=== PATIENT | male | born 1950 | race Caucasian/White ===

== ENCOUNTER → 2018-03-22 12:05 | Outpatient (CLI) | payer OTHER, SELFPAY ==
[2018-03-22 12:43] LABS: Add Manual Diff / Slide Review NO; Basophils Percent Auto 0.7 % (0-2); Eosinophils Percent Auto 1.6 % (2-4); Hematocrit 48.3 % (41-53); Hemoglobin 16.7 g/dL (13.5-17.5); Mean Corpuscular HGB Conc 34.6 % (30-36); Mean Corpuscular Hemoglobin 33.6 PG (26-34); Monocytes Percent Auto 10.3 % (3-14); Neutrophils Absolute Auto 3100 /uL (3000-5900); Neutrophils Percent Auto 59.4 % (50-75); Platelet Count 182 X10^3/uL (150-400); Red Blood Cell Count 4.98 X10^6/uL (4.5-5.9); Red Cell Distribution Width 13.7 % (11.6-14.8); White Blood Cell Count 5.2 X10^3/uL (4.5-11.0)
[2018-03-22 13:03] LABS: Alanine Aminotransferase 34 IU/L (21-72); Albumin 4.5 g/dL (3.5-5.0); Albumin Globulin Ratio 1.3 (1.0-2.8); Alkaline Phosphatase 65 U/L (38-126); Aspartate Aminotransferase 31 IU/L (17-59); Bilirubin Total 0.8 mg/dL (0.2-1.3); Blood Urea Nitrogen 14 mg/dL (9-20); Calcium 9.5 mg/dL (8.4-10.2); Carbon Dioxide 33 mmol/L (22-32); Chloride 99 mmol/L (98-107); Cholesterol 144 mg/dL (140-199); Estimated Glomerular Filt Rate 50.5 mL/min (>60); Globulin 3.5 g/dL (1.7-4.1); Glucose 88 mg/dL (80-110); HDL Cholesterol 59 mg/dL (40-60); HEMOLYSIS < 15 (0-50); LDL Cholesterol Calculated 69 mg/dL (<100); Potassium 5.4 mmol/L (3.4-5.1); Sodium 139 mmol/L (137-145); Triglycerides 78 mg/dL (35-150)
[2018-03-22 13:33] LABS: Thyroid Stimulating Hormone 1.26 uIU/mL (0.47-4.68)
== END ==
PROVIDERS: PCP Family Medicine; Visit Provider Family Medicine
DX: I10 Essential (primary) hypertension (principal)
CPT/HCPCS: 36415; 80053; 80061; 84153; 84443; 85025

== ENCOUNTER 2018-04-30 12:01 | Emergency (ER) | payer OTHER, SELFPAY ==
[2018-04-30 12:18] VITALS: BP 192/95; PULSE 63; RESP 18; TEMP 37; O2SAT 100; BMI 28.5
--- NOTE | 2018-04-30 12:18 | DI.RAD.S_ITS ---
PROCEDURE: XR RIBS RT MIN 3V W CXR 1V INDICATIONS: injury and pain. TECHNIQUE: 2 views of the right ribs were acquired, along with a single view chest. COMPARISON: None. FINDINGS: Surgical changes and devices: None. Bones and chest wall: No fractures or dislocations. No suspicious bony lesions. Overlying soft tissues appear unremarkable. Lungs and pleura: No pleural effusions or pneumothorax. Lungs appear clear. Mediastinum: Mediastinal contours appear normal. Heart size is normal. IMPRESSION: Normal for age, source of current symptoms is not seen. Dictated by: Anil Alvarado M.D. on 04/30/2018 at 13:36 Approved by: Anil Alvarado M.D. on 04/30/2018 at 13:36
--- NOTE | 2018-04-30 12:39 | ED.UPPEXIN ---
HPI - Extremity Injury (Upper) <Bee Murrell PA-C - Last Filed: 04/30/18 18:45> General Chief Complaint: Extremity Injury, Upper Stated Complaint: fell,hurt rt side Time Seen by Provider: 04/30/18 12:26 Source: patient Mode of arrival: ambulatory Limitations: no limitations History of Present Illness HPI narrative: This 68-year-old male slipped and fell on the edge of his bed foot board on Monday night, hitting the right side of his ribs. Since then, he has had pain, especially with sneezing or coughing. He has not been taking any pain medication. States that he thought this would improve on its own, but still just as painful so came in due to concern for rib fracture. He denies any wheeze or dyspnea. He denies any head contusion, LOC, or any other injury. Related Data Home Medications Medication Instructions Recorded Confirmed atorvastatin [Lipitor] 20 mg PO BEDTIME #0 10/24/16 04/30/18 aspirin 325 mg PO QDAY #0 12/13/16 sertraline 50 mg PO DAILY 04/30/18 04/30/18 Previous Rx's Medication Instructions Recorded lisinopril 20 mg PO BID #180 tab 09/19/17 metoprolol succinate ER 50 mg 50 mg PO BID #180 each 03/28/18 capsule sprinkle, ext. release 24 hr diltiazem ER 180 mg capsule,24 180 mg PO QDAY #90 cap 04/23/18 hr,extended release oxycodone-acetaminophen [Percocet] 1 tab PO Q4-6H PRN #12 tab 04/30/18 Allergies Allergy/AdvReac Type Severity Reaction Status Date / Time No Known Drug Allergies Allergy Unknown Verified 04/30/18 12:18 Review of Systems <Bee Murrell PA-C - Last Filed: 04/30/18 18:45> Review of Systems All systems reviewed & are unremarkable except as noted in HPI and below Exam <Bee Murrell PA-C - Last Filed: 04/30/18 18:45> Narrative Exam Narrative: GENERAL APPEARANCE: Patient sitting comfortably, in no distress. NECK/THYROID: Neck supple LUNGS: Clear to auscultation bilaterally. CHEST: TTP over the R. mid to inferior ribs between the mid and lateral scapular line the where there are ecchymoses HEART: Regular rate and rhythm without murmur, normal S1, S2, no S3 or S4. ABDOMEN: Soft, NT, ND, + BS x 4 quadrants NEUROLOGIC: Alert and oriented, normal speech, gait and coordination. Initial Vital Signs Initial Vital Signs: Vital Signs Temperature 98.6 F 04/30/18 12:18 Pulse Rate 63 04/30/18 12:18 Respiratory Rate 18 04/30/18 12:18 Blood Pressure 192/95 H 04/30/18 12:18 Pulse Oximetry 100 04/30/18 12:18 <DO Juan Pablo Domínguez Last Filed: 04/30/18 20:28> Initial Vital Signs Initial Vital Signs: Vital Signs Temperature 98.6 F 04/30/18 12:18 Pulse Rate 63 04/30/18 12:18 Respiratory Rate 18 04/30/18 12:18 Blood Pressure 192/95 H 04/30/18 12:18 Pulse Oximetry 100 04/30/18 12:18 Course <Bee Murrell PA-C - Last Filed: 04/30/18 18:45> Orders Ordered: ED Orders 04/30/18 12:18 XR ribs RT min 3V w CXR1V Stat Discontinued Medications Ibuprofen (Advil) 800 mg PO NOW ONE Stop: 04/30/18 13:02 Last Admin: 04/30/18 13:16 Dose: 800 mg Vital Signs - 8 hr 04/30/18 14:20 Pulse Rate 61 Respiratory Rate 18 Blood Pressure [Right Arm] 181/94 H Pulse Oximetry 97 <DO Juan Pablo Domínguez Last Filed: 04/30/18 20:28> Orders Ordered: ED Orders 04/30/18 12:18 XR ribs RT min 3V w CXR1V Stat Discontinued Medications Ibuprofen (Advil) 800 mg PO NOW ONE Stop: 04/30/18 13:02 Last Admin: 04/30/18 13:16 Dose: 800 mg Vital Signs - 8 hr 04/30/18 14:20 Pulse Rate 61 Respiratory Rate 18 Blood Pressure [Right Arm] 181/94 H Pulse Oximetry 97 MDM - Extremity Injury (Upper) <ANNA Hanna Last Filed: 04/30/18 18:45> Imaging Data Chest x-ray: Radiologist's impression: [address] [address] XRay Report Addendum Patient: Landry Sweet MMR#: [id number] : [id number]:[id number] Age/Sex: 68 / MDate of Service: 04/30/18 Loc: ED Accession Number: [id number] Procedure: XR ribs RT min 3V w CXR1V Ordering Provider: Shaan Jalloh D.O. ADDENDUM This report includes an Addendum and supersedes previous reports for this exam. PROCEDURE: XR RIBS RT MIN 3V W CXR 1V INDICATIONS: injury and pain. TECHNIQUE: 2 views of the right ribs were acquired, along with a single view chest. COMPARISON: None. FINDINGS: Surgical changes and devices: None. Bones and chest wall: No dislocations. No suspicious bony lesions. Overlying soft tissues appear unremarkable. Lungs and pleura: No pleural effusions or pneumothorax. Lungs appear clear. Mediastinum: Mediastinal contours appear normal. Heart size is normal. IMPRESSION: Normal for age, source of current symptoms is not seen. Dictated by: Anil Alvarado M.D. on 04/30/2018 at 13:36 Approved by: Anil Alvarado M.D. on 04/30/2018 at 13:36 ADDENDUM: On further review there appears to be minimally displaced lower lateral right rib fracture or 2 adjacent fractures, superimposed upon the lateral border of the chest, at the point where the ninth and 10th ribs overlap. No underlying pneumothorax. No gas in the soft tissues found. Dictated by: Anil Alvarado M.D. on 04/30/2018 at 14:02 Approved by: Anil Alvarado M.D. on 04/30/2018 at 14:04 Discharge Plan Departure Patient Disposition: Home Clinical Impression: Right rib fracture Discharge Date/Time: 04/30/18 14:28 Interventions: ED Discharge Assessment Last Done: 04/30/18 14:27 Instructions: DI for Rib Fracture Activity Restrictions/Additional Instructions: Please take your ibuprofen that you have at home, 6-800 mg (3-4 tablets) every 8 hr to help with pain and inflammation. You can take the Percocet that you have used in the past as needed, but remember not to drive as it can make you sleepy. Please call your PCP today and set up a follow-up in the next few days for recheck and refill your pain medicine if needed. Return here right away as we talked about if you have any acutely worsening symptoms such as more pain or trouble breathing. Use the spirometer as the respiratory therapist showed you to help keep your lungs expanded. Prescriptions: New oxycodone-acetaminophen [Percocet] 5-325 mg tablet 1 tab PO Q4-6H PRN (Reason: acute rib fx pain) Qty: 12 RF: 0 No Action atorvastatin [Lipitor] 20 MG tablet 20 mg PO BEDTIME Qty: 0 RF: 0 aspirin 325 MG tablet 325 mg PO QDAY Qty: 0 RF: 0 lisinopril 20 MG tablet 20 mg PO BID Qty: 180 RF: 3 diltiazem HCl [Taztia XT] 180 mg capsule,extended release 24 hr 180 mg PO QDAY Qty: 90 RF: 1 metoprolol succinate 50 mg cap,sprinkle,ER 24hr dose pack 50 mg PO BID Qty: 180 RF: 3 sertraline 50 mg tablet 50 mg PO DAILY RF: 0 Referrals: Alejandro Jesus MD [Primary Care Provider] - <Shaan Jalloh DO - Last Filed: 04/30/18 20:28> Cosign ED Attending Cossergeiature Attestation: I was immediately available in the department for consultation. Documentation has been reviewed. I agree with assessment and plan.
[2018-04-30] MEDS: IBUPROFEN 400 MG TABLET 800 MG PO (13:16)
[2018-04-30 14:20] VITALS: BP 181/94; PULSE 61; RESP 18; O2SAT 97
== END 2018-04-30 14:28 | disposition home or self-care (01) ==
PROVIDERS: Emergency Provider Internal Medicine; PCP Family Medicine
DX: S22.31XA Fracture of one rib, right side, initial encounter for closed fracture (principal); W01.0XXA Fall on same level from slipping, tripping and stumbling without subsequent striking against object, initial encounter
CPT/HCPCS: 71101; 99282; 99283

== ENCOUNTER → 2019-03-26 10:36 | Outpatient (CLI) | payer OTHER, SELFPAY ==
[2019-03-26 11:37] LABS: Add Manual Diff / Slide Review NO; Basophils Absolute Auto 0 /uL (0-100); Basophils Percent Auto 0.6 % (0-2); Eosinophils Absolute Auto 100 /uL (0-450); Hemoglobin 17.1 g/dL (13.5-17.5); Lymphocytes Absolute Auto 2000 /uL (1100-4500); Lymphocytes Percent Auto 31.9 % (25-40); Mean Corpuscular HGB Conc 34.2 % (30-36); Mean Corpuscular Hemoglobin 32.7 PG (26-34); Mean Corpuscular Volume 95.6 fL (80-100); Monocytes Absolute Auto 600 /uL (0-900); Monocytes Percent Auto 9.5 % (3-14); Neutrophils Absolute Auto 3600 /uL (1500-7000); Platelet Count 172 X10^3/uL (150-400); Red Blood Cell Count 5.23 X10^6/uL (4.5-5.9); Red Cell Distribution Width 13.4 % (11.6-14.8); White Blood Cell Count 6.3 X10^3/uL (4.5-11.0)
[2019-03-26 12:09] LABS: Alanine Aminotransferase 26 IU/L (21-72); Albumin 4.4 g/dL (3.5-5.0); Albumin Globulin Ratio 1.4 (1.0-2.8); Alkaline Phosphatase 67 U/L (38-126); Aspartate Aminotransferase 29 IU/L (17-59); BUN Creatinine Ratio 10.8 (6-22); Bilirubin Total 0.9 mg/dL (0.2-1.3); Blood Urea Nitrogen 13 mg/dL (9-20); Calcium 9.7 mg/dL (8.4-10.2); Carbon Dioxide 28 mmol/L (22-32); Chloride 97 mmol/L (98-107); Cholesterol 141 mg/dL (140-199); Estimated Glomerular Filt Rate > 60.0 mL/min (>60); Globulin 3.1 g/dL (1.7-4.1); Glucose 86 mg/dL (80-110); HDL Cholesterol 53 mg/dL (40-60); HEMOLYSIS < 15 (0-50); LDL Cholesterol Calculated 69 mg/dL (<100); Potassium 4.4 mmol/L (3.4-5.1); Sodium 136 mmol/L (137-145); Total Protein 7.5 g/dL (6.3-8.2); Triglycerides 96 mg/dL (35-150)
[2019-03-26 12:37] LABS: Prostate Specific Antigen Scrn 1.32 ng/mL (0.1-4.0)
== END ==
PROVIDERS: PCP Family Medicine; Visit Provider Family Medicine
DX: I10 Essential (primary) hypertension (principal); Z12.5 Encounter for screening for malignant neoplasm of prostate; Z13.0 Encounter for screening for diseases of the blood and blood-forming organs and certain disorders involving the immune mechanism; Z13.1 Encounter for screening for diabetes mellitus; Z13.220 Encounter for screening for lipoid disorders
CPT/HCPCS: 36415; 80053; 80061; 84443; 85025; G0103

== ENCOUNTER → 2020-02-25 11:52 | Outpatient (CLI) | payer OTHER, SELFPAY ==
[2020-02-25 13:34] LABS: Add Manual Diff / Slide Review NO; Basophils Absolute Auto 0 /uL (0-100); Basophils Percent Auto 0.7 % (0-2); Eosinophils Absolute Auto 100 /uL (0-450); Hematocrit 49.8 % (41-53); Hemoglobin 17.1 g/dL (13.5-17.5); Lymphocytes Absolute Auto 2200 /uL (1100-4500); Lymphocytes Percent Auto 33.7 % (25-40); Mean Corpuscular HGB Conc 34.3 % (30-36); Mean Corpuscular Hemoglobin 33.7 PG (26-34); Mean Corpuscular Volume 98.3 fL (80-100); Monocytes Absolute Auto 700 /uL (0-900); Monocytes Percent Auto 9.9 % (3-14); Neutrophils Absolute Auto 3600 /uL (1500-7000); Neutrophils Percent Auto 54.7 % (50-75); Platelet Count 198 X10^3/uL (150-400); Red Blood Cell Count 5.07 X10^6/uL (4.5-5.9); Red Cell Distribution Width 14.1 % (11.6-14.8); White Blood Cell Count 6.6 X10^3/uL (4.5-11.0)
[2020-02-25 13:39] LABS: Alanine Aminotransferase 43 IU/L (<50); Albumin 4.5 g/dL (3.5-5.0); Albumin Globulin Ratio 1.3 (1.0-2.8); Alkaline Phosphatase 76 U/L (38-126); Aspartate Aminotransferase 50 IU/L (17-59); BUN Creatinine Ratio 9.2 (6-22); Bilirubin Total 0.9 mg/dL (0.2-1.3); Blood Urea Nitrogen 13 mg/dL (9-20); Calcium 9.5 mg/dL (8.4-10.2); Carbon Dioxide 26 mmol/L (22-32); Chloride 100 mmol/L (98-107); Cholesterol 134 mg/dL (140-199); Estimated Glomerular Filt Rate 49.4 mL/min (>60); Globulin 3.6 g/dL (1.7-4.1); Glucose 98 mg/dL (80-110); HDL Cholesterol 52 mg/dL (40-60); HEMOLYSIS < 15 (0-50); LDL Cholesterol Calculated 60 mg/dL (<100); Potassium 4.4 mmol/L (3.4-5.1); Sodium 134 mmol/L (137-145); Total Protein 8.1 g/dL (6.3-8.2); Triglycerides 111 mg/dL (35-150)
[2020-02-25 14:07] LABS: Prostate Specific Antigen Scrn 1.42 ng/mL (0.1-4.0)
== END ==
PROVIDERS: PCP Family Medicine; Referring Provider Family Medicine; Visit Provider Family Medicine
DX: I10 Essential (primary) hypertension (principal); I48.91 Unspecified atrial fibrillation; Z12.5 Encounter for screening for malignant neoplasm of prostate; Z13.220 Encounter for screening for lipoid disorders; Z13.6 Encounter for screening for cardiovascular disorders
CPT/HCPCS: 36415; 80053; 80061; 85025; G0103

== ENCOUNTER → 2020-03-20 11:52 | Outpatient (CLI) | payer OTHER, SELFPAY ==
[2020-03-20 12:54] LABS: BUN Creatinine Ratio 10.2 (6-22); Blood Urea Nitrogen 13 mg/dL (9-20); Calcium 9.2 mg/dL (8.4-10.2); Carbon Dioxide 26 mmol/L (22-32); Chloride 101 mmol/L (98-107); Estimated Glomerular Filt Rate 55.7 mL/min (>60); Glucose 80 mg/dL (80-110); HEMOLYSIS < 15 (0-50); Potassium 4.8 mmol/L (3.4-5.1); Sodium 134 mmol/L (137-145)
== END ==
PROVIDERS: PCP Family Medicine; Referring Provider Family Medicine; Visit Provider Family Medicine
DX: I10 Essential (primary) hypertension (principal)
CPT/HCPCS: 36415; 80048

== ENCOUNTER → 2020-03-23 11:31 | Outpatient (CLI) | payer OTHER, SELFPAY ==
[2020-03-24 07:58] LABS: COVID19 Sendout Not Detected (Not Detect)
== END ==
PROVIDERS: PCP Family Medicine; Visit Provider Physician Assistant
DX: Z11.59 Encounter for screening for other viral diseases (principal)
CPT/HCPCS: 87635

== ENCOUNTER 2020-03-26 11:56 | Day surgery (SDC) | payer OTHER, SELFPAY ==
--- NOTE | 2020-03-26 | PATH_ITS ---
[facility] Accession Number: [id number] . 01 Material submitted: . sigmoid colon - SIGMOID POLYP . 02 Diagnosis: Sigmoid Colon, Polyp, Biopsy: Tubular adenoma in three of six fragments. MRV 03/30/2020 1205 Local . 02 Electronically signed: . Joycelyn Seo MD, Pathologist NPI- [id number] . 01 Gross description: . SIGMOID POLYP: Received in formalin are multiple fragment(s) of goncalves, soft tissue measuring 0.1 x 0.1 x 0.1 cm to 0.5 x 0.3 x 0.2 cm submitted entirely in 1 cassette(s) /RHETT 03/27/2020 0139 Local . 02 Pathologist provided ICD-10: D12.5 . 02 CPT . 985091 Performed at: 01 [facility] [address] [id number] MD Wilbur Hernández MD Phone: [phone] Performed at: 02 [facility] [address] [place], [place] [id number] MD Joycelyn Seo MD Phone: [phone]
[2020-03-26] MEDS: LACTATED RINGERS 1,000 ML 200 ML IV (12:08)
[2020-03-26 12:17] VITALS: BP 161/97; PULSE 54; RESP 18; TEMP 36.5; O2SAT 98; BMI 30.7
--- NOTE | 2020-03-26 12:57 | PM.HP.1 ---
History of Present Illness History of Present Illness Date Patient Seen: 03/26/20 Time Patient Seen: 12:58 Chief complaint: SDC Narrative: The patient presents for colorectal sreening. They had a previous colonoscopy 3 years ago that demonstrated multiple polyps which were No personal or family history of colon cancer. On further history denies any recent gastrointestinal symptoms. No nausea, vomiting, abdominal pain, loss of appetite, unexplained weight loss, change in bowel habits, diarrhea, constipation, melena, hematochezia, or bright red blood per rectum. Patient History Medical History Atrial fibrillation (Chronic ~2012) Chicken pox (Resolved ~1957) Hemorrhoid (Chronic ~1994) Hypertension (Chronic ~2009) Mumps (Resolved ~1956) Surgical History History of repair of ACL (Resolved ~1997) Family & Social History Social History: household members spouse Tobacco & Substance use: Smoking Status Never smoker alcohol intake current alcohol intake frequency a few times a week Substance Use Type does not use Meds Home Medications and Allergies Home Medications Medication Instructions Recorded Confirmed Type atorvastatin 20 mg tablet 20 mg PO BEDTIME #90 tab 04/09/19 03/26/20 Rx diltiazem HCl 180 mg capsule,24 180 mg PO QDAY #90 cap 04/09/19 03/26/20 Rx hr,extended release lisinopril 40 mg tablet 40 mg PO BID #180 tab 01/14/20 03/26/20 Rx metoprolol succinate 100 mg 100 mg PO BID #180 each 03/04/20 03/26/20 Rx capsule sprinkle, ext. release 24 hr aspirin [Aspirin Low Dose] 81 mg PO DAILY 03/26/20 03/26/20 History uocmicwb-stj-BX-lycopen-lutein 1 tab PO DAILY 03/26/20 03/26/20 History [Centrum Silver] sertraline 50 mg PO BID 03/26/20 03/26/20 History Allergies Allergy/AdvReac Type Severity Reaction Status Date / Time No Known Drug Allergies Allergy Unknown Verified 03/26/20 12:08 Review of Systems Review of Systems Narrative: A 10 point review of systems is negative except as noted in the HPI Exam Vital Signs (past 8 hours): - 03/26/20 12:17 Temperature 97.7 F Pulse Rate 54 L Respiratory Rate 18 Blood Pressure 161/97 H Pulse Oximetry 98 Oxygen Delivery Method Room Air Narrative Exam Narrative: General-no acute distress, well nourished adult male HEENT-moist mucous membranes, no scleral icterus Neck-supple, no lymphadenopathy Chest- non labored respirations, clear to auscultation bilaterally Cardiac-regular rate no peripheral edema Abdomen-soft, nontender, non distended Extremities-warm, well perfused Neurological-alert and oriented, no focal deficits Assessment & Plan Assessment and plan (1) Screening for colon cancer: Status: Acute Assessment & Plan narrative: The patient requires colorectal screening and colonoscopy is recommended. Technical details were discussed. Risks, benefits, alternatives explained. Risks including but not limited to myocardial infarction, aspiration, bleeding, pain, missed lesion, incomplete examination, need for further radiographic studies, colonic perforation, and need for major abdominal surgery were discussed. All questions were answered to their satisfaction, and they are in agreement with this plan.
[2020-03-26] MEDS: fentaNYL 250 MCG/5 ML INJ IV (13:03)
[2020-03-26] MEDS: MIDAZOLAM 5 MG/5 ML VIAL IV (13:03)
--- NOTE | 2020-03-26 13:27 | PM.OP.ENDO ---
Operative Date/Time/Diagnoses Date of procedure: 03/26/20 Time of procedure: 13:28 Pre-op diagnosis: Screening colonoscopy Post-op diagnosis: same Procedure & Clinicians Study performed: Colonoscopy Same procedure as scheduled: Yes Indications: 70-year-old man history of polyps presents for routine screening Surgeon: Mina Hernández Procedure Notes SCOAP/Timeout: Performed Procedure in detail: Patient placed in left lateral recumbent position. Time out was performed. Procedural sedation was administered with Versed and Fentanyl. Examination began with a thorough inspection of the perianal area there was no evidence of fissures, fistulae, external hemorrhoids or cutaneous malignancy there was a benign appearing external skin tag. The colonoscopy scope was then placed into the rectum the the lumen was insufflated with air. The scope was carefully advanced forward. Ultimately the cecum was intubated and confirmed by identification of the ileocecal valve, the appendiceal orifice and the confluence of the taenia. The scope was then slowly withdrawn examining colon thoroughly in all directions. In the rectum the rectal columns were identified and retroflexion of the scope was performed for inspection of the distal rectum and anal canal. The colonoscopy was notable for the followin. Quality of the preparation-fair 2. Sigmoid polyp less than 1 cm removed in its entirety with biopsy forceps 3. Sigmoid diverticulosis . Scope withdrawal time: 8 Sedation minutes: 25 Findings: diverticulosis and polyp Specimen(s): other (sigmoid polyp) Complications: none Impression: polyp Post-procedure Recommendations: Colonscopy in 5 years Disposition: same day surgery
[2020-03-26 13:32] VITALS: BP 144/84; PULSE 48; RESP 12; TEMP 36.1; O2SAT 95
[2020-03-26 13:37] VITALS: BP 144/83; PULSE 51; RESP 12; TEMP 36.1; O2SAT 95
[2020-03-26 13:42] VITALS: BP 154/85; PULSE 51; RESP 13; TEMP 36.2; O2SAT 95
[2020-03-26 13:47] VITALS: BP 140/85; PULSE 58; RESP 16; TEMP 36; O2SAT 98
[2020-03-26 13:50] VITALS: BP 151/91; PULSE 60; RESP 11; TEMP 36.1; O2SAT 98
--- NOTE | 2020-03-26 14:20 | SUR.PHASEII ---
Discharged patient in stable condition. All belongings returned to patient. Home with .
== END 2020-03-26 14:21 | disposition home or self-care (01) ==
PROVIDERS: PCP Family Medicine; Referring Provider Surgery; Visit Provider Surgery
PROC: 0DJD8ZZ Inspection of Lower Intestinal Tract, Via Natural or Artificial Opening Endoscopic (ICD-10-PCS; CPT 45378; principal; 2020-03-26 13:00)
DX: K57.30 Diverticulosis of large intestine without perforation or abscess without bleeding (principal); Z12.11 Encounter for screening for malignant neoplasm of colon; D12.5 Benign neoplasm of sigmoid colon; I48.91 Unspecified atrial fibrillation; I10 Essential (primary) hypertension
CPT/HCPCS: 45380; 99152; J2250; J3010

== ENCOUNTER → 2020-05-06 15:22 | Outpatient (CLI) | payer OTHER, SELFPAY ==
[2020-05-06 17:25] LABS: Testosterone 1510 ng/dL (71.8-623)
== END ==
PROVIDERS: PCP Family Medicine; Referring Provider Family Medicine; Visit Provider Family Medicine
DX: F32.9 Major depressive disorder, single episode, unspecified (principal)
CPT/HCPCS: 36415; 84403

== ENCOUNTER → 2021-01-28 12:22 | Outpatient (CLI) | payer OTHER, SELFPAY ==
[2021-01-28 13:21] LABS: Alanine Aminotransferase 57 IU/L (<50); Albumin 4.4 g/dL (3.5-5.0); Albumin Globulin Ratio 1.3 (1.0-2.8); Alkaline Phosphatase 91 U/L (38-126); Aspartate Aminotransferase 59 IU/L (17-59); Bilirubin Total 0.7 mg/dL (0.2-1.3); Blood Urea Nitrogen 13 mg/dL (9-20); Calcium 10.1 mg/dL (8.4-10.2); Carbon Dioxide 23 mmol/L (22-32); Chloride 102 mmol/L (98-107); Cholesterol 176 mg/dL (140-199); Estimated Glomerular Filt Rate > 60.0 mL/min (>60); Globulin 3.4 g/dL (1.7-4.1); Glucose 111 mg/dL (80-110); HDL Cholesterol 75 mg/dL (40-60); HEMOLYSIS < 15 (0-50); LDL Cholesterol Calculated 79 mg/dL (<100); Potassium 4.6 mmol/L (3.4-5.1); Sodium 134 mmol/L (137-145); Total Protein 7.8 g/dL (6.3-8.2); Triglycerides 111 mg/dL (35-150)
[2021-01-28 13:51] LABS: Testosterone 147 ng/dL (71.8-623)
== END ==
PROVIDERS: Family Medicine; PCP Family Medicine; Referring Provider Family Medicine; Visit Provider Family Medicine
DX: R79.89 Other specified abnormal findings of blood chemistry (principal); E78.5 Hyperlipidemia, unspecified; I10 Essential (primary) hypertension
CPT/HCPCS: 36415; 80053; 80061; 84403

== ENCOUNTER → 2022-04-12 12:07 | Outpatient (CLI) | payer OTHER, SELFPAY ==
[2022-04-12 13:22] LABS: Add Manual Diff / Slide Review NO; Basophils Absolute Auto 0 /uL (0-100); Basophils Percent Auto 0.6 % (0-2); Eosinophils Absolute Auto 200 /uL (0-450); Eosinophils Percent Auto 3.4 % (2-4); Hematocrit 39.7 % (41-53); Hemoglobin 13.8 g/dL (13.5-17.5); Lymphocytes Absolute Auto 1900 /uL (1100-4500); Lymphocytes Percent Auto 27.9 % (25-40); Mean Corpuscular HGB Conc 34.8 % (30-36); Mean Corpuscular Hemoglobin 32.7 PG (26-34); Monocytes Absolute Auto 600 /uL (0-900); Monocytes Percent Auto 8.3 % (3-14); Neutrophils Absolute Auto 4100 /uL (1500-7000); Neutrophils Percent Auto 59.8 % (50-75); Platelet Count 206 X10^3/uL (150-400); Red Blood Cell Count 4.23 X10^6/uL (4.5-5.9); Red Cell Distribution Width 12.9 % (11.6-14.8); White Blood Cell Count 6.8 X10^3/uL (4.5-11.0)
[2022-04-12 13:39] LABS: Alanine Aminotransferase 37 IU/L (<50); Albumin 4.4 g/dL (3.5-5.0); Albumin Globulin Ratio 1.2 (1.0-2.8); Alkaline Phosphatase 81 U/L (38-126); Aspartate Aminotransferase 33 IU/L (17-59); BUN Creatinine Ratio 13.4 (6-22); Bilirubin Total 0.6 mg/dL (0.2-1.3); Blood Urea Nitrogen 15 mg/dL (9-20); Calcium 9.5 mg/dL (8.4-10.2); Carbon Dioxide 25 mmol/L (22-32); Chloride 98 mmol/L (98-107); Cholesterol 152 mg/dL (140-199); Estimated Glomerular Filt Rate > 60 mL/min (>60); Globulin 3.6 g/dL (1.7-4.1); Glucose 102 mg/dL (80-110); HDL Cholesterol 52 mg/dL (40-60); HEMOLYSIS < 15 (0-50); LDL Cholesterol Calculated 80 mg/dL (<100); Potassium 4.6 mmol/L (3.4-5.1); Sodium 133 mmol/L (137-145); Triglycerides 98 mg/dL (35-150)
== END ==
PROVIDERS: PCP Family Medicine; Referring Provider Family Medicine; Visit Provider Family Medicine
DX: E78.2 Mixed hyperlipidemia (principal); I10 Essential (primary) hypertension; I48.20 Chronic atrial fibrillation, unspecified; C44.91 Basal cell carcinoma of skin, unspecified
CPT/HCPCS: 36415; 80053; 80061; 85025

== ENCOUNTER → 2022-05-05 10:14 | Outpatient (CLI) | payer OTHER, SELFPAY ==
--- NOTE | 2022-05-05 10:15 | DI.ECHO.S_ITS ---
[facility]---------+ [facility] +---------+ : : [address] : : : : [id number] : : : : Phone: [phone]+ Echocardiogram Report + + :Name: JOSELYN LEWIS Study Date: 05/05/2022 Height: 71.5 in: :[facility] ReadingLocation: Weight: 220 lb : : Gender: Male BSA: 2.2 m2 : :: 1950 Age: 72 yrs BP: 163/88 mmHg: :Reason For Study: HYPERTENSION : :Ordering Physician: MARCO, : :BRENDAN Performed By: Zayra Mckinney : :Referring: BRENDAN LARA : + + Interpretation Summary The left ventricle is normal in size and wall thickness. Left ventricular systolic function is normal. The ejection fraction is estimated to be 60-65%. LVEF has improved. There are no focal wall motion abnormalities. Diastolic parameters suggest a relaxation abnormality of the left ventricle, consistent with probable normal filling pressures. The right ventricle is normal in size and function. The left atrial size is normal. Right atrial size is normal. There is no significant valvular heart disease. Both MR and TR have improved. The aortic root is normal size. Procedure: A two-dimensional transthoracic echocardiogram with color flow and Doppler was performed. The study quality was technically adequate. Comparison is made with the echocardiogram of 08/24/2016. The patient was in sinus rhythm with heart rates between 58-68 bpm during the exam. Left Ventricle: The left ventricle is normal in size and wall thickness. Left ventricular systolic function is normal. The ejection fraction is estimated to be 60-65%. There are no focal wall motion abnormalities. Diastolic parameters suggest a relaxation abnormality of the left ventricle, consistent with probable normal filling pressures. Right Ventricle: The right ventricle is normal in size and function. Atria: The left atrial size is normal. Right atrial size is normal. There is no Doppler evidence for an interatrial shunt. Mitral Valve: The mitral valve leaflets appear mildly thickened, but open well. There is mild mitral annular calcification. There is mild mitral regurgitation. Aortic Valve: The aortic valve is trileaflet. The aortic valve opens well. There is no aortic valve stenosis. There is trace aortic regurgitation. Tricuspid Valve: The tricuspid valve is normal in structure and function. There is mild tricuspid regurgitation. Pulmonic Valve: The pulmonic valve is not well seen, but is grossly normal. There is mild pulmonic regurgitation. There is no significant valvular heart disease. Great Vessels: The aortic root is normal size. The dimensions of the ascending aorta are normal. The IVC is of normal diameter and collapses greater than 50% with a sniff. This suggests a low right atrial pressure of 3 mm Hg. Pericardium/ Pleura There is no pericardial effusion. There is no pleural effusion. MMode/2D Measurements & Calculations LVIDd: 4.2 cm LVOT diam: 2.1 cm LVIDs: 2.9 cm Ao root diam: 3.6 cm FS: 31.8 % asc Aorta Diam: 3.9 cm EPSS: 0.66 cm Ao Arch Diam (Prox Trans): 3.2 cm IVSd: 0.99 cm LVPWd: 1.1 cm LV mcgrath. diameter/BSA (cm/m^2): 1.9 LV sys. diameter/BSA (cm/m^2): 1.3 LA A2 area: 21.1 cm2 RA long axis: 5.4 cm LA A4 area: 16.0 cm2 RA area: 14.4 cm2 LA length (vol): 5.0 cm RA vol: 32.5 ml LA vol: 57.0 ml RA : 14.7 ml/m2 LA vol index: 25.8 ml/m2 IVC diam: 1.5 cm RVD1 (basal): 3.2 cm RVD2 (mid): 3.2 cm TAPSE: 1.8 cm Doppler Measurements & Calculations Ao V2 max: 107.8 cm/sec LVOT Max Devon: 90.7 cm/sec Ao V2 mean: 76.5 cm/sec LV V1 max P.3 mmHg Ao max P.7 mmHg LV V1 VTI: 20.9 cm Ao mean P.6 mmHg IVORY(I,D): 3.0 cm2 Ao V2 VTI: 23.6 cm IVORY(V,D): 2.9 cm2 sev ratio: 0.88 IVORY indexed to BSA (cm^2/m^2): 1.4 MV E max devon: 57.8 cm/sec TR max devon: 213.3 cm/sec MV A max devon: 70.3 cm/sec TR max P.3 mmHg MV E/A: 0.82 PA V2 max: 98.7 cm/sec Med Peak E' Devon: 7.2 cm/sec PA V2 mean: 66.6 cm/sec E/E' med: 8.1 PA mean P.1 mmHg Lat Peak E' Devon: 7.6 cm/sec PA pr(Accel): 24.2 mmHg E/E' lat: 7.6 E/e' average: 7.8 MV dec time: 0.27 sec SV(LVOT): 71.7 ml Reading Physician:06:13 PM
== END ==
PROVIDERS: PCP Family Medicine; Referring Provider Family Medicine; Visit Provider Family Medicine
DX: I10 Essential (primary) hypertension (principal); I08.1 Rheumatic disorders of both mitral and tricuspid valves; I48.20 Chronic atrial fibrillation, unspecified; N52.9 Male erectile dysfunction, unspecified
CPT/HCPCS: 93306

== ENCOUNTER 2023-02-04 10:56 | Emergency (ER) | payer MEDICARE, SELFPAY ==
[2023-02-04 11:21] VITALS: BP 160/85; PULSE 83; RESP 18; TEMP 36.8; O2SAT 98; BMI 30.9
--- NOTE | 2023-02-04 11:26 | DI.RAD.S_ITS ---
PROCEDURE: XR FOOT RT MIN 3V INDICATIONS: fall/pain TECHNIQUE: 3 views of the foot were acquired. COMPARISON: None. FINDINGS: Bones: No fractures or dislocations. No suspicious bony lesions. Moderate posterior and plantar calcaneal spur Soft tissues: No tibiotalar joint effusion. Achilles tendon appears normal. IMPRESSION: No fracture or foreign body. Moderate calcaneal spurring Approved by: Sharif Woodruff M.D. on 02/04/2023 at 11:31
--- NOTE | 2023-02-04 11:26 | DI.RAD.S_ITS ---
PROCEDURE: XR KNEE RT 3V INDICATIONS: fall/pain TECHNIQUE: 3 views of the knee were acquired. COMPARISON: None. FINDINGS: Bones: No fractures or dislocations. No suspicious bony lesions. Mild joint space narrowing Soft tissues: Moderate joint effusion IMPRESSION: Moderate joint effusion without fracture Approved by: Sharif Woodruff M.D. on 02/04/2023 at 11:29
[2023-02-04] MEDS: IBUPROFEN 400 MG TABLET 800 MG PO (13:43)
--- NOTE | 2023-02-04 13:45 | ED_ITS ---
HPI - Extremity Injury (Lower) <Jailene Sandhu PA-C - Last Filed: 02/04/23 13:55> General Chief Complaint: Extremity Injury, Lower Stated Complaint: fall T-1 R/knee and foot pain Time Seen by Provider: 02/04/23 13:35 Source: patient Mode of arrival: Wheelchair History of Present Illness HPI Narrative: Patient is a 72-year-old male who tripped and fell last night and injured his right ankle and right knee. He did not hit his head or lose consciousness. He is not on any blood thinners. He took Tylenol 3 for pain last night with some relief. He presents today because it hurts to walk on his foot. His foot is swollen. He rates his pain as a 6/10. He is not applied ice or taken any pain medications today. Related Data Home Medications Medication Instructions Recorded Confirmed swtaeggz-veb-zdyal acid 0.4 1 tab PO DAILY 03/26/20 04/19/22 mg-lycopene 300 mcg-lutein 250 mcg tablet (Centrum Silver) Previous Rx's Medication Instructions Recorded sertraline 100 mg tablet 100 mg PO QAM #90 tabs 03/25/21 lisinopril 40 mg tablet 40 mg PO BID #180 tabs 02/04/22 papaverine 150 mg-phentolamin 5 0.3 ml intra-cavernosal DAILY PRN 04/19/22 mg-alprost 50 mcg intracavernosal sexual activity #1 ea soln (Tri-Mix ([id number])) sertraline 50 mg tablet 50 mg PO .QHS #90 tabs 04/25/22 atorvastatin 20 mg tablet (Lipitor) 20 mg PO BEDTIME #90 tabs 05/31/22 trazodone 50 mg tablet See Rx Instructions .Route 06/14/22 .COMPLEX #60 tabs diltiazem HCl 240 mg capsule,24 240 mg PO QDAY #90 caps 08/05/22 hr,extended release metoprolol succinate 50 mg 50 mg PO BID #180 tabs 08/08/22 tablet,extended release 24 hr ibuprofen 600 mg tablet 600 mg PO Q6H PRN pain #30 tabs 02/04/23 Allergies Allergy/AdvReac Type Severity Reaction Status Date / Time No Known Drug Allergies Allergy Unknown Verified 02/18/21 10:33 Review of Systems <Jailene Sandhu PA-C - Last Filed: 02/04/23 13:55> Review of Systems ROS Unobtainable: All systems reviewed & are unremarkable except as noted in HPI and below Patient History <Jailene Sandhu PA-C - Last Filed: 02/04/23 13:55> Medical History Actinic keratosis (07/02/14) Atrial fibrillation (~2012) Chicken pox (~1957) Erectile dysfunction Hemorrhoid (~1994) Hyperlipidemia Hypertension (~2009) Mumps (~1956) Screening for colon cancer Surgical History History of repair of ACL (~1997) Social History household members: spouse Smoking Status: Never smoker alcohol intake: current Smoking Status: Never smoker alcohol intake frequency: a few times a week Substance Use Type: does not use Exam <Jailene Sandhu PA-C - Last Filed: 02/04/23 13:55> Narrative Exam Narrative: GENERAL: 72year old patient appears stated age. Well-developed patient, in no distress. Accompanied by . NEURO: AOx3. HEAD: Atraumatic. Normocephalic. RESPIRATORY: No distress EXTREMITIES: Mild swelling of right knee with no focal pain. Full range of motion of right knee. Right foot and ankle with visible moderate edema, no ecchymosis. No obvious deformity. DP pulse intact. Able to range ankle with mild pain. SKIN: No rash or erythema of visible areas Initial Vital Signs Initial Vital Signs: Vital Signs Temperature 98.3 F 02/04/23 11:21 Pulse Rate 83 02/04/23 11:21 Respiratory Rate 18 02/04/23 11:21 Blood Pressure 160/85 H 02/04/23 11:21 Pulse Oximetry 98 02/04/23 11:21 Oxygen Delivery Method Room Air 02/04/23 11:21 <Rita Richter DO - Last Filed: 02/05/23 07:20> Initial Vital Signs Initial Vital Signs: Vital Signs Temperature 98.3 F 02/04/23 11:21 Pulse Rate 83 02/04/23 11:21 Respiratory Rate 18 02/04/23 11:21 Blood Pressure 160/85 H 02/04/23 11:21 Pulse Oximetry 98 02/04/23 11:21 Oxygen Delivery Method Room Air 02/04/23 11:21 Course <Jailene Sandhu PA-C - Last Filed: 02/04/23 13:55> Orders Ordered: Discontinued Medications Ibuprofen (Ibuprofen 400 Mg Tablet) 800 mg PO NOW ONE Stop: 02/04/23 13:36 Last Admin: 02/04/23 13:43 Dose: 800 mg Documented By: SB Vital Signs Vital signs: Vital Signs - 8 hr 02/04/23 11:21 Temperature 98.3 F Pulse Rate 83 Respiratory Rate 18 Blood Pressure 160/85 H Pulse Oximetry 98 Oxygen Delivery Method Room Air <Rita Richter DO - Last Filed: 02/05/23 07:20> Orders Ordered: Discontinued Medications Ibuprofen (Ibuprofen 400 Mg Tablet) 800 mg PO NOW ONE Stop: 02/04/23 13:36 Last Admin: 02/04/23 13:43 Dose: 800 mg Documented By: SB Vital Signs Vital signs: Vital Signs - 8 hr 02/04/23 11:21 Temperature 98.3 F Pulse Rate 83 Respiratory Rate 18 Blood Pressure 160/85 H Pulse Oximetry 98 Oxygen Delivery Method Room Air MDM - Extremity Injury (Lower) <Jailene Sandhu PA-C - Last Filed: 02/04/23 13:55> Imaging Data Extremity x-ray #1: Radiologist's Impression: PROCEDURE:? XR KNEE RT 3V ? INDICATIONS:? fall/pain ? TECHNIQUE:? 3 views of the knee were acquired.? ? COMPARISON:? None. ? FINDINGS:? ? Bones:? No fractures or dislocations.? No suspicious bony lesions.? Mild joint space narrowing ? Soft tissues:? Moderate joint effusion ? ? IMPRESSION:? Moderate joint effusion without fracture ? ? ? Approved by: Sharif Woodruff M.D. on 02/04/2023 at 11:29? Extremity x-ray #2: Radiologist's Impression: [address] [address] XRay Report Signed Patient: Landry Sweet MR#: [id number] : 1950 Acct:[id number] Age/Sex: 72 / M Date of Service: 02/04/23 Loc: ED Accession Number: [id number] ?? Procedure: XR foot RT min 3V Ordering Provider: Rita Richter D.O. PROCEDURE:? XR FOOT RT MIN 3V ? INDICATIONS:? fall/pain ? TECHNIQUE:? 3 views of the foot were acquired.? ? COMPARISON:? None. ? FINDINGS:? ? Bones:? No fractures or dislocations.? No suspicious bony lesions.? Moderate posterior and plantar calcaneal spur ? Soft tissues:? No tibiotalar joint effusion.? Achilles tendon appears normal.? ? ? IMPRESSION:? ? No fracture or foreign body.? ? Moderate calcaneal spurring ? ? ? Approved by: Sharif Woodruff M.D. on 02/04/2023 at 11:31? MDM Narrative Medical decision making narrative: Multiple etiologies for patient's symptoms considered including, but not limited to: Ankle sprain, ankle fracture, ligamentous knee injury. X-rays without any acute bony abnormality. Right knee effusion noted. Patient advised RICE, ibuprofen scheduled for the next 72 hours. Patient's symptoms improved over duration of stay with above-stated therapies. Findings and discharge diagnosis discussed with patient/family followed by verbalization of understanding Return precautions discussed with patient/family whom verbalize understanding of diagnosis and plan Discharge Plan Departure Patient Disposition: Home Clinical Impression: Ankle sprain, Knee pain Instructions: DI for Knee Sprain, DI for Ankle Sprain Activity Restrictions/Additional Instructions: *You have been diagnosed with right ankle and right knee sprain. There are no broken bones on your x-rays. Please take ibuprofen 8600 mg every 6-8 hours with a small snack or food for pain and inflammation, elevate your extremity, apply ice for 15 minutes every 2-3 hours while awake, keep ankle wrapped especially when ambulating. It may take several weeks for these injuries to fully heal. *What to do: *Please continue to take your regular medications as directed. [x ] New medication prescriptions sent to your pharmacy: [[facility]] [ ] New medication written as a paper prescription [ ] No new medications given *Please follow up with your primary care provider in 2-3 days, call for an appointment. Let them know you were seen in the Emergency Department and that we ask that you be seen in follow up. We will electronically transmit a record of today's note if your PCP is in our system *If you do not have a primary care provider please contact the [facility] Resource line at [phone]. They will ask some questions about your medical history and help get you set up with a doctor in the community. *Return to Emergency Department if you should have any new, worsening or concerning symptoms, such as [fever greater than 101 F, shaking chills, worsening pain, persistent vomiting or other bothersome symptoms] Prescriptions: New ibuprofen 600 mg tablet 600 mg PO Q6H PRN (Reason: pain) Qty: 30 0RF No Action sertraline 100 mg tablet 100 mg PO QAM Qty: 90 2RF Rx Instructions: Take 1 tablet PO in the morning. lisinopril 40 mg tablet 40 mg PO BID Qty: 180 3RF sertraline 50 mg tablet 50 mg PO .QHS Qty: 90 2RF Rx Instructions: Take one tablet by mouth once daily in the evening. atorvastatin [Lipitor] 20 mg tablet 20 mg PO BEDTIME Qty: 90 3RF trazodone 50 mg tablet See Rx Instructions .ROUTE .COMPLEX Qty: 60 0RF Dose Instruction: take 1 TO 2 tablet by mouth at bedtime if needed for sleep / insomnia Rx Instructions: take 1 TO 2 tablet by mouth at bedtime if needed for sleep / insomnia diltiazem HCl 240 mg capsule,extended release 24 hr 240 mg PO QDAY Qty: 90 3RF metoprolol succinate 50 mg tablet extended release 24 hr 50 mg PO BID Qty: 180 3RF Tri-Mix ([id number]) 150 mg-5 mg- 50 mcg recon soln 0.3 ml intra-cavernosal DAILY PRN (Reason: sexual activity) Qty: 1 0RF Rx Instructions: use no more than 2 times in one week, 24 hours apart. Centrum Silver 0.4-300-250 mg-mcg-mcg Tablet 1 tab PO DAILY Referrals: Manpreet Miller MD [Primary Care Provider] - Stand Alone Forms: Patient Portal/API <Rita Richter DO - Last Filed: 02/05/23 07:20> Cosign ED Attending Fionaature Attestation: I was immediately available in the department for consultation. Documentation has been reviewed.
[2023-02-04 14:14] VITALS: BP 162/85; PULSE 63; RESP 18; O2SAT 99
== END 2023-02-04 14:16 | disposition home or self-care (01) ==
PROVIDERS: Emergency Provider Physician Assistant; PCP Family Medicine
DX: S93.401A Sprain of unspecified ligament of right ankle, initial encounter (principal); S83.91XA Sprain of unspecified site of right knee, initial encounter; W01.0XXA Fall on same level from slipping, tripping and stumbling without subsequent striking against object, initial encounter
CPT/HCPCS: 73562; 73630; 99283; 99284

== ENCOUNTER → 2023-02-22 10:19 | Outpatient (CLI) | payer MEDICARE, OTHER, SELFPAY ==
[2023-02-22 13:15] LABS: Cholesterol 189 mg/dL (140-199); HDL Cholesterol 48 mg/dL (40-60); LDL Cholesterol Calculated 105 mg/dL (<100); Triglycerides 181 mg/dL (35-150)
[2023-02-23 12:35] LABS: Hep C Virus Ab w/Reflex Quant NEGATIVE s/c (NEGATIVE)
== END ==
PROVIDERS: PCP Family Medicine; Referring Provider Family Medicine; Visit Provider Family Medicine
DX: E78.2 Mixed hyperlipidemia (principal); I10 Essential (primary) hypertension; Z11.3 Encounter for screening for infections with a predominantly sexual mode of transmission
CPT/HCPCS: 36415; 80061; 86803

== ENCOUNTER → 2023-02-23 07:26 | Outpatient (CLI) | payer MEDICARE, OTHER, SELFPAY ==
[2023-02-23 10:04] LABS: Microalbumi Creatinin Ratio Ur 6.6 ug/mg CR (<30); Microalbumin Urine Random 0.9 mg/dL (0-1.6)
== END ==
PROVIDERS: PCP Family Medicine; Referring Provider Family Medicine; Visit Provider Family Medicine
DX: E78.2 Mixed hyperlipidemia (principal); I10 Essential (primary) hypertension; Z11.3 Encounter for screening for infections with a predominantly sexual mode of transmission
CPT/HCPCS: 82043; 82570

== ENCOUNTER → 2024-05-07 09:03 | Outpatient (CLI) | payer MEDICARE, SELFPAY ==
[2024-05-07 10:25] LABS: Add Manual Diff / Slide Review NO; Basophils Absolute Auto 0 /uL (0-100); Basophils Percent Auto 0.7 % (0-2); Eosinophils Absolute Auto 400 /uL (0-450); Eosinophils Percent Auto 5.2 % (2-4); Hematocrit 40.7 % (41-53); Hemoglobin 13.7 g/dL (13.5-17.5); Lymphocytes Absolute Auto 2000 /uL (1100-4500); Lymphocytes Percent Auto 26.4 % (25-40); Mean Corpuscular HGB Conc 33.7 % (30-36); Mean Corpuscular Hemoglobin 32.7 PG (26-34); Mean Corpuscular Volume 97.1 fL (80-100); Monocytes Absolute Auto 600 /uL (0-900); Monocytes Percent Auto 7.8 % (3-14); Neutrophils Absolute Auto 4500 /uL (1500-7000); Neutrophils Percent Auto 59.9 % (50-75); Platelet Count 215 X10^3/uL (150-400); Red Blood Cell Count 4.19 X10^6/uL (4.5-5.9); Red Cell Distribution Width 13.5 % (11.6-14.8); White Blood Cell Count 7.6 X10^3/uL (4.5-11.0)
[2024-05-07 10:35] LABS: Hemoglobin A1C% w Est Avg Glu 5.4 % (4.0-6.0)
[2024-05-07 10:51] LABS: BUN Creatinine Ratio 8.7 (6-22); Blood Urea Nitrogen 11 mg/dL (9-20); Calcium 9.7 mg/dL (8.4-10.2); Carbon Dioxide 25 mmol/L (22-32); Chloride 103 mmol/L (98-107); Cholesterol 151 mg/dL (140-199); Estimated Glomerular Filt Rate > 60 mL/min (>60); Glucose 99 mg/dL (80-110); HDL Cholesterol 58 mg/dL (40-60); HEMOLYSIS < 15 (0-50); LDL Cholesterol Calculated 60 mg/dL (<100); Potassium 4.7 mmol/L (3.4-5.1); Sodium 134 mmol/L (137-145); Triglycerides 163 mg/dL (35-150)
[2024-05-07 11:23] LABS: TSH w/ Reflex to FT4 2.59 uIU/mL (0.47-4.68)
[2024-05-07 11:33] LABS: Creatinine Urine Random 76.89 mg/dL
[2024-05-07 11:39] LABS: Microalbumin Urine Random 1.1 mg/dL (0-1.6)
[2024-05-08 04:09] LABS: Apolipoprotein B 65 mg/dL (<90)
== END ==
PROVIDERS: PCP Family Medicine; Referring Provider Family Medicine; Visit Provider Family Medicine
DX: E78.2 Mixed hyperlipidemia (principal); Z13.1 Encounter for screening for diabetes mellitus; Z12.5 Encounter for screening for malignant neoplasm of prostate; C44.91 Basal cell carcinoma of skin, unspecified; I10 Essential (primary) hypertension; I48.20 Chronic atrial fibrillation, unspecified
CPT/HCPCS: 36415; 80048; 80061; 82043; 82172; 82570; 83036; 84443; 85025; G0103

== ENCOUNTER → 2025-04-16 11:13 | Outpatient (CLI) | payer MEDICARE, SELFPAY ==
[2025-04-16 12:09] LABS: Add Manual Diff / Slide Review NO; Hematocrit 40.8 % (41-53); Hemoglobin 14.0 g/dL (13.5-17.5); Lymphocytes Absolute Auto 2100 /uL (1100-4500); Mean Corpuscular HGB Conc 34.3 % (30-36); Mean Corpuscular Hemoglobin 32.9 PG (26-34); Mean Corpuscular Volume 95.8 fL (80-100); Platelet Count 209 X10^3/uL (150-400)
[2025-04-16 12:17] LABS: Alanine Aminotransferase 42 IU/L (<50); Albumin 4.5 g/dL (3.5-5.0); Albumin Globulin Ratio 1.6 (1.0-2.8); Alkaline Phosphatase 93 U/L (38-126); Blood Urea Nitrogen 14 mg/dL (9-20); Calcium 9.8 mg/dL (8.4-10.2); Carbon Dioxide 25 mmol/L (22-32); Chloride 98 mmol/L (98-107); Cholesterol 157 mg/dL (140-199); Estimated Glomerular Filt Rate > 60 mL/min (>60); Globulin 2.9 g/dL (1.7-4.1); Glucose 111 mg/dL (70-99); HDL Cholesterol 70 mg/dL (40-60); HEMOLYSIS < 15 (0-50); Potassium 4.7 mmol/L (3.4-5.1); Sodium 132 mmol/L (137-145); Total Protein 7.4 g/dL (6.3-8.2); Triglycerides 122 mg/dL (35-150)
[2025-04-16 12:47] LABS: TSH w/ Reflex to FT4 1.95 uIU/mL (0.47-4.68)
[2025-04-16 15:42] LABS: Microalbumi Creatinin Ratio Ur 15.0 ug/mg CR (<30)
== END ==
PROVIDERS: PCP Family Medicine; Referring Provider Family Medicine; Visit Provider Family Medicine
DX: N52.9 Male erectile dysfunction, unspecified (principal); Z12.5 Encounter for screening for malignant neoplasm of prostate; E78.5 Hyperlipidemia, unspecified; C44.91 Basal cell carcinoma of skin, unspecified; I10 Essential (primary) hypertension; I48.91 Unspecified atrial fibrillation; Z98.890 Other specified postprocedural states; Z86.79 Personal history of other diseases of the circulatory system
CPT/HCPCS: 36415; 80053; 80061; 82043; 82172; 82570; 84443; 85025; G0103